=== PATIENT | female | born 1980 | race African-American/Black ===

== ENCOUNTER 2016-11-21 21:37 | Emergency (ER) | payer SELFPAY ==
--- NOTE | 2016-11-21 23:29 | ED Physician Chart ---
Chief Complaint/HPI - Patient Information Date Seen:: 11/21/16 Time Seen:: 21:59 Chief Complaint:: LEFT EAR PAIN History of Present Illness:: THIS IS A 36 YO FEMALE WHO IS CONCERNED ABOUT HER LEFT EAR PAIN. SHE DENIES FEVER, EAR DRAINAGE, RECENT SWIMING AND DENIES PREVIOUS EAR INFECTIONS. SHE DENIES ANY RELATED TRAUMA TO THE LEFT EAR. SHE DENIES HAVING A SORE THROAT AND COUGH. SHE STATES THAT HER HEARING HAS NOT BEEN AFFECTED. THE PAIN IS 5/10. Allergies:: Allergies Allergy/AdvReac Type Severity Reaction Status Date / Time No Known Allergies Allergy Verified 11/21/16 22:05 Vitals:: Vital Signs - 8 hr 11/21/16 11/21/16 21:53 22:35 Temp 97.9 F 97.8 F HR 95 90 RR 19 18 BP 126/84 121/74 O2 Sat % 99 99 Historian:: Patient Review:: Nurse's Note Reviewed Review of Systems - Review of Systems General/Constitutional: No fever, No chills, No weight loss, No weakness, No diaphoresis, No edema, No loss of appetite Skin: No skin lesions, No rash, No bruising Head: No headache, No light-headedness Eyes: No loss of vision, No pain, No diplopia ENT: Earache, No nasal drainage, No sore throat, No tinnitus Neck: No neck pain, No swelling, No thyromegaly, No stiffness, No mass noted Cardio Vascular: No chest pain, No palpitations, No PND, No orthopnea, No edema Pulmonary: No SOB, No cough, No sputum, No wheezing GI: No nausea, No vomiting, No diarrhea, No pain, No melena, No hematochezia, No constipation, No hematemesis G/U: No dysuria, No frequency, No hematuria Musculoskeletal: No bone or joint pain, No back pain, No muscle pain Endocrine: No polyuria, No polydipsia Psychiatric: No prior psych history, No depression, No anxiety, No suicidal ideation Hematopoietic: No bruising, No lymphadenopathy Allergic/Immuno: No urticaria, No angioedema Neurological: No syncope, No focal symptoms, No weakness, No paresthesia, No headache, No seizure, No dizziness, No confusion, No vertigo Past Medical History - Past Medical History Obtainable: Yes Past Medical History: No significant medical hx Family History: None Social History: Smoker, Alcohol, Illicit Drug Use (THC) Surgical History: None Psychiatricy History: None Medication: Reviewed Family Medical History - Family Member Mother History Unknown: Yes Ethnicity: Non- Father History Unknown: Yes Hx Family Hypertension: Yes Hx Family Diabetes: Yes Physical Exam - Physical Examination General/Constitutional: Awake, Well-developed, well-nourished, Alert, No distress, GCS 15, Non-toxic appearing, Ambulatory Head: Atraumatic Eyes: Lids, conjuctiva normal, PERRL, EOMI Skin: Nl inspection, No rash, No skin lesions, No ecchymosis, Well hydrated, No lymphadenopathy ENMT: Nasal exam nl, Lips, teeth, gums nl Other ENMT comments:: THE LEFT EAR CANAL IS SWOLLEN AND RED WITH A SIGNIFICANT AMOUNT OF WAX NOTED LODGED IN THE CANAL. Neck: Nontender, Full ROM w/o pain, No JVD, No nuchal rigidity, No bruit, No mass, No stridor Respiratory: Nl effort/Exclusion, Clear to Auscultation, No Wheeze/Rhonchi/Rales Cardio Vascular: RRR, No murmur, gallop, rubs, NL S1 S2 GI: No tenderness/rebounding/guarding, No organomegaly, No hernia, Normal BS's, Nondistended, No mass/bruits, No McBurney tenderness : No CVA tenderness Extremities: No tenderness or effusion, Full ROM, normal strength in all extremities, No edema, Normal digits & nails Neuro/Psych: Alert/oriented, DTR's symmetric, Normal sensory exam, Normal motor strength, Judgement/insight normal, Mood normal, Normal gait, No focal deficits Misc: normal gait, Normal back, No paraspinal tenderness Assessment - Assessment General Assessment: LEFT EAR CERUMEN IMPACTION ED Septic Shock - . Is Septic Shock (SBP<90, OR Lactate>4 mmol\L) present?: No - <6hrs of presentation: Vital Signs: Vital Signs - 8 hr 11/21/16 11/21/16 21:53 22:35 Temp 97.9 F 97.8 F HR 95 90 RR 19 18 BP 126/84 121/74 O2 Sat % 99 99 Reassessment (Disposition) - Reassessment Reassessment Condition:: Unchanged - Diagnosis Diagnosis:: LEFT CERUMEN IMPACTION - Aftercare/Follow up Instructions Aftercare/Follow-Up Instructions:: Counseled pt regarding lab results/diagnosis & need follow up, Refer to Discharge Instructions, Counseled pt & family regarding lab results/diagnosis & need follow up - Patient Disposition Discharge/Transfer:: Home Condition at Disposition:: Unchanged ED Discharge Plan - Patient Disposition Admit/Discharge/Transfer: PT DISCHARGED HOME Condition at Disposition: Unchanged Instructions: Cerumen Impaction Additional Instructions: take medications as prescribed. follow up with primary doctor
== END 2016-11-21 22:35 | disposition home or self-care (01) ==
LOC: ER 21:37
DX: H61.22 Impacted cerumen, left ear (principal); F17.200 Nicotine dependence, unspecified, uncomplicated
CPT/HCPCS: Z7502

== ENCOUNTER 2017-09-14 11:07 | Emergency (ER) | payer SELFPAY ==
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
--- NOTE | 2017-09-14 13:11 | Diagnostic Imaging Report ---
CT scan of the brain without contrast History: Headache, trauma Total DLP equals 844 CTDI equals 43.5 Axial sections were obtained from the base of the skull to the vertex. There is a normal ventricular system size. No focal parenchymal lesions are seen. No evidence of any mass effect or shift of midline structures. No extra-axial masses or abnormal fluid collections. Mild mucosal thickening noted within the sphenoid sinus region. Impression: 1. No acute intracerebral abnormalities 2. Mild mucosal thickening within the sphenoid sinus region.
--- NOTE | 2017-09-14 13:12 | Diagnostic Imaging Report ---
CT scan cervical spine HISTORY: Pain, trauma Total DLP equals 617 CTDI equals 31.8 Axial sections were obtained through the cervical spine. Additional sagittal and coronal reformatted images are provided. Alignment is normal. Disc spaces are maintained. Degenerative spur formation noted off the anterior margins of the bodies of C5 and 6. No acute abnormalities. No fractures. The prevertebral soft tissues appear normal. IMPRESSION: 1. No acute abnormalities 2. Degenerative changes C5-6
== END 2017-09-14 13:55 | disposition home or self-care (01) ==
LOC: ER 11:07
DX: S16.1XXA Strain of muscle, fascia and tendon at neck level, initial encounter (principal); R51 Headache; V89.2XXA Person injured in unspecified motor-vehicle accident, traffic, initial encounter; Y93.89 Activity, other specified; Y92.488 Other paved roadways as the place of occurrence of the external cause; Y99.8 Other external cause status
CPT/HCPCS: 70450-TC; 72125-TC; 81025-TC

== ENCOUNTER 2018-02-08 12:04 | Emergency (ER) | payer SELFPAY ==
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
== END 2018-02-08 13:32 | disposition home or self-care (01) ==
LOC: ER 12:04
DX: R10.11 Right upper quadrant pain (principal); V89.2XXA Person injured in unspecified motor-vehicle accident, traffic, initial encounter; Y93.89 Activity, other specified; Y92.410 Unspecified street and highway as the place of occurrence of the external cause; Y99.8 Other external cause status
CPT/HCPCS: Z7502

== ENCOUNTER 2018-08-14 10:49 | Emergency (ER) | payer SELFPAY ==
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
--- NOTE | 2018-08-15 09:57 | Diagnostic Imaging Report ---
CT scan of the brain without contrast History: Headache, trauma Total DLP equals 731 CTDI equals 37.2 Axial sections were obtained from the base of the skull to the vertex. There is a normal ventricular system size. No focal parenchymal lesions are seen. No evidence of any mass effect or shift of midline structures. No extra-axial masses or abnormal fluid collections. Impression: No acute intracerebral abnormalities
--- NOTE | 2018-08-15 10:00 | Diagnostic Imaging Report ---
CT scan cervical spine HISTORY: Pain, trauma Total DLP equals 568 CTDI equals 32.8 Axial sections were obtained through the cervical spine. Additional sagittal and coronal reformatted images are provided. Alignment is normal. Disc spaces are maintained. Small spur formation noted off the anterior margins of the bodies of C5 and C6. No acute abnormalities. No fractures. The prevertebral soft tissues appear normal. IMPRESSION: 1. No acute abnormalities 2. Degenerative changes C5-6
--- NOTE | 2018-08-15 10:01 | Diagnostic Imaging Report ---
CT scan lumbar spine HISTORY: Pain, trauma Total DLP equals 1537 CTDI equals 49.2 Axial sections were obtained through the lumbar spine. Additional sagittal and coronal reformatted images are provided. Alignment is normal. No significant extradural abnormalities. No acute bony abnormalities. No fractures. IMPRESSION: 1. No acute abnormalities
== END 2018-08-14 13:37 | disposition home or self-care (01) ==
LOC: ER 10:49
DX: S16.1XXA Strain of muscle, fascia and tendon at neck level, initial encounter (principal); S39.012A Strain of muscle, fascia and tendon of lower back, initial encounter; S00.93XA Contusion of unspecified part of head, initial encounter; V89.2XXA Person injured in unspecified motor-vehicle accident, traffic, initial encounter; Y93.89 Activity, other specified; Y92.410 Unspecified street and highway as the place of occurrence of the external cause; Y99.8 Other external cause status
CPT/HCPCS: 70450-TC; 72125-TC; 72131-TC

== ENCOUNTER 2018-11-29 | Emergency (ER) | payer SELFPAY ==
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
[2018-11-29] MEDS ORDERED: Morphine Sulfate 2 mg/mL 1mL Syr IM STA (00:37)
[2018-11-29] MEDS ORDERED: Morphine Sulfate 2 mg/mL 1mL Syr ONE (00:40)
[2018-11-29] MEDS ORDERED: Triple Antibiotic 0.94 gm Pkt TP STA (00:58)
[2018-11-29] MEDS ORDERED: Triple Antibiotic 0.94 gm Pkt TP ONE (01:01)
== END 2018-11-29 01:28 | disposition home or self-care (01) ==
LOC: ER
DX: S01.511A Laceration without foreign body of lip, initial encounter (principal); W18.39XA Other fall on same level, initial encounter; Y93.89 Activity, other specified; Y92.89 Other specified places as the place of occurrence of the external cause; Y99.8 Other external cause status
CPT/HCPCS: 99283; 12011; 96372; J2270; Z7502; Z7610

== ENCOUNTER 2018-12-14 12:42 | Emergency (ER) | payer SELFPAY ==
--- NOTE | 2018-12-14 14:21 | ED Physician Chart ---
ED Chief Complaint/HPI - Patient Information Date Seen:: 12/14/18 Time Seen:: 13:35 Chief Complaint:: Lip Wound History of Present Illness:: pt presents for suture removal of a 2 week sutured lip laceration; pt has no other s/s; pt's last tetanus shot: < 5 years; UTD Allergies:: Allergies Allergy/AdvReac Type Severity Reaction Status Date / Time No Known Allergies Allergy Verified 08/14/18 11:08 Vitals:: Vital Signs - 8 hr 12/14/18 13:35 Temp 97.9 F HR 115 RR 17 BP 143/90 O2 Sat % 97 Historian:: Patient Review:: Nurse's Note Reviewed, Old Chart Reviewed ED Review of Systems - Review of Systems General/Constitutional: No fever, No chills, No weight loss, No weakness, No diaphoresis, No edema, No loss of appetite Skin: No skin lesions, No rash, No bruising Head: No headache, No light-headedness Eyes: No loss of vision, No pain, No diplopia ENT: No earache, No nasal drainage, No sore throat, No tinnitus Neck: No neck pain, No swelling, No thyromegaly, No stiffness, No mass noted Cardio Vascular: No chest pain, No palpitations, No PND, No orthopnea, No edema Pulmonary: No SOB, No cough, No sputum, No wheezing GI: No nausea, No vomiting, No diarrhea, No pain, No melena, No hematochezia, No constipation, No hematemesis G/U: No dysuria, No frequency, No hematuria, No nacturia 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 vaginal discharge, No abnormal vaginal bleed, No contraction Musculoskeletal: No bone or joint pain, No back pain, No muscle pain Endocrine: No polyuria, No polydipsia Psychiatric: No prior psych history, No depression, No anxiety, No suicidal ideation, No homicidal ideation, No auditory hallucination, No visual hallucination Hematopoietic: No bruising, No lymphadenopathy Allergic/Immuno: No urticaria, No angioedema Neurological: No syncope, No focal symptoms, No weakness, No paresthesia, No headache, No seizure, No dizziness, No confusion, No vertigo ED Past Medical History - Past Medical History Obtainable: Yes Past Medical History: HTN Family History: HTN Social History: Non Smoker, No Alcohol, No Drug Use, Single Surgical History: None Psychiatricy History: None Medication: Reviewed Family Medical History - Family Member Mother History Unknown: Yes Ethnicity: Non- Hx Family Cancer: No Hx Family Coronary Artery Disease: No Hx Family Congestive Heart Failure: No Hx Family Hypertension: No Hx Family Stroke: No Hx Family Seizures: No Hx Family Dementia: No Hx Family AIDS: No Hx Family COPD: No Hx Family Hepatitis: No Hx Family Psychiatric Problems: No Father History Unknown: Yes Hx Family Cancer: No Hx Family Coronary Artery Disease: No Hx Family Congestive Heart Failure: No Hx Family Hypertension: No Hx Family Diabetes: Yes Hx Family Seizures: No Hx Family Dementia: No Hx Family COPD: No Hx Family Tuberculosis: No ED Physical Exam - Physical Examination General/Constitutional: Awake, Well-developed, well-nourished, Alert, No distress, GCS 15, Non-toxic appearing, Ambulatory Head: Atraumatic Eyes: Lids, conjuctiva normal, PERRL, EOMI Skin: Nl inspection, No rash, No skin lesions, No ecchymosis, Well hydrated, No lymphadenopathy Other Skin comments:: Sutured Lip Wound is healing well; no s/s of infection; good NV functions ENMT: External ears, nose nl, TM canals nl, Nasal exam nl, Lips, teeth, gums nl , Oropharynx nl, Tonsils nl Neck: Nontender, Full ROM w/o pain, No JVD, No nuchal rigidity, No bruit, No mass, No stridor Other Neck comments:: supple; no meningeal signs; no cervical tenderness; no bruits Respiratory: Nl effort/Exclusion, Clear to Auscultation, No Wheeze/Rhonchi/Rales Cardio Vascular: RRR, No murmur, gallop, rubs, NL S1 S2, Carotid/Femoral/Distal pulses equal bilaterally GI: No tenderness/rebounding/guarding, No organomegaly, No hernia, Normal BS's, Nondistended, No mass/bruits, No McBurney tenderness, Rectum exam nl Other GI comments:: no pulsatile masses : No CVA tenderness Extremities: No tenderness or effusion, Full ROM, normal strength in all extremities, No edema, Normal digits & nails Neuro/Psych: Alert/oriented, DTR's symmetric, Normal sensory exam, Normal motor strength, Judgement/insight normal, Mood normal, Normal gait, No focal deficits Misc: Normal back, No paraspinal tenderness ED Septic Shock - . Is Septic Shock (SBP<90, OR Lactate>4 mmol\L) present?: No - <6hrs of presentation: Vital Signs: Vital Signs - 8 hr 12/14/18 13:35 Temp 97.9 F HR 115 RR 17 BP 143/90 O2 Sat % 97 ED Reassessment (Disposition) - Reassessment Reassessment:: pt is asymptomatic upon discharge/elopement Reassessment Condition:: Improved - Diagnosis Diagnosis:: Hypertension; Sutured Healing Lip Wound - Aftercare/Follow up Instructions Aftercare/Follow-Up Instructions:: Counseled pt regarding lab results/diagnosis & need follow up, Refer to Discharge Instructions, Counseled pt & family regarding lab results/diagnosis & need follow up - Patient Disposition Discharge/Transfer:: [place]/AWOL Condition at Disposition:: Stable, Improved (Have BP re-checked in one day by PMD; Sutures to be removed today; RTER prn if existing s/s reoccur and/or get worse and/or any other new s/s occur; ACIs given for all above Dx; Refer to ENT Specialist/Facial Plastic Surgeon/Pediatric Physical Therapy Assistant CATIE; F/U with PMD Today or prn; RTER prn if concerned)
== END 2018-12-14 13:40 | disposition left against medical advice (07) ==
LOC: ER 12:42
DX: S01.511D Laceration without foreign body of lip, subsequent encounter (principal); I10 Essential (primary) hypertension; X58.XXXD Exposure to other specified factors, subsequent encounter
CPT/HCPCS: Z7502

== ENCOUNTER 2018-12-15 16:07 | Emergency (ER) | payer SELFPAY ==
--- NOTE | 2018-12-15 19:07 | ED Physician Chart ---
ED Chief Complaint/HPI - Patient Information Date Seen:: 12/15/18 Time Seen:: 16:20 Chief Complaint:: Lip Wound Check History of Present Illness:: pt is s/p sutured lip laceration on 11/29/18; pt presents for a wound check and removal of 3 sutures; pt has no complaints; pt denies LOC, ALOC, AMS, H/As, neck pain, C/P, SOB, Abd. Pain, or urinary s/s; pt's last tetanus shot: < 5 years; UTD Allergies:: Allergies Allergy/AdvReac Type Severity Reaction Status Date / Time No Known Allergies Allergy Verified 08/14/18 11:08 Vitals:: Vital Signs - 8 hr 12/15/18 16:21 Temp 97.1 F HR 129 RR 16 BP 120/82 O2 Sat % 94 Historian:: Patient Review:: Nurse's Note Reviewed, Old Chart Reviewed ED Review of Systems - Review of Systems General/Constitutional: No fever, No chills, No weight loss, No weakness, No diaphoresis, No edema, No loss of appetite Skin: No skin lesions, No rash, No bruising Head: No headache, No light-headedness Eyes: No loss of vision, No pain, No diplopia ENT: No earache, No nasal drainage, No sore throat, No tinnitus Neck: No neck pain, No swelling, No thyromegaly, No stiffness, No mass noted Cardio Vascular: No chest pain, No palpitations, No PND, No orthopnea, No edema Pulmonary: No SOB, No cough, No sputum, No wheezing GI: No nausea, No vomiting, No diarrhea, No pain, No melena, No hematochezia, No constipation, No hematemesis G/U: No dysuria, No frequency, No hematuria, No nacturia Slurry Worker: No vaginal discharge, No abnormal vaginal bleed, No contraction Musculoskeletal: No bone or joint pain, No back pain, No muscle pain Endocrine: No polyuria, No polydipsia Psychiatric: No prior psych history, No depression, No anxiety, No suicidal ideation, No homicidal ideation, No auditory hallucination, No visual hallucination Hematopoietic: No bruising, No lymphadenopathy Allergic/Immuno: No urticaria, No angioedema Neurological: No syncope, No focal symptoms, No weakness, No paresthesia, No headache, No seizure, No dizziness, No confusion, No vertigo ED Past Medical History - Past Medical History Obtainable: Yes Past Medical History: No significant medical hx Family History: HTN Social History: Non Smoker, No Alcohol, No Drug Use, Single Surgical History: None Psychiatricy History: None Medication: Reviewed Family Medical History - Family Member Mother History Unknown: Yes Ethnicity: Non- Hx Family Cancer: No Hx Family Coronary Artery Disease: No Hx Family Congestive Heart Failure: No Hx Family Hypertension: No Hx Family Stroke: No Hx Family Seizures: No Hx Family Dementia: No Hx Family AIDS: No Hx Family COPD: No Hx Family Hepatitis: No Hx Family Psychiatric Problems: No Father History Unknown: Yes Hx Family Cancer: No Hx Family Coronary Artery Disease: No Hx Family Congestive Heart Failure: No Hx Family Hypertension: No Hx Family Diabetes: Yes Hx Family Seizures: No Hx Family Dementia: No Hx Family COPD: No Hx Family Tuberculosis: No ED Physical Exam - Physical Examination General/Constitutional: Awake, Well-developed, well-nourished, Alert, No distress, GCS 15, Non-toxic appearing, Ambulatory Head: Atraumatic Eyes: Lids, conjuctiva normal, PERRL, EOMI Other Eyes comments:: PERRLA; Fundi: benign; EOMs: WNL Skin: Nl inspection, No rash, No skin lesions, No ecchymosis, Well hydrated, No lymphadenopathy Other Skin comments:: Lower Lip Wound is healing well; no s/s of infection; good NV functions ENMT: External ears, nose nl, TM canals nl, Nasal exam nl, Lips, teeth, gums nl , Oropharynx nl, Tonsils nl Other ENMT comments:: TMJs: WNL; as above; Lower Lip Wound is healing well; no s/s of infection Neck: Nontender, Full ROM w/o pain, No JVD, No nuchal rigidity, No bruit, No mass, No stridor Other Neck comments:: supple; no meningeal signs; no cervical tenderness; no bruits Respiratory: Nl effort/Exclusion, Clear to Auscultation, No Wheeze/Rhonchi/Rales Cardio Vascular: RRR, No murmur, gallop, rubs, NL S1 S2, Carotid/Femoral/Distal pulses equal bilaterally GI: No tenderness/rebounding/guarding, No organomegaly, No hernia, Normal BS's, Nondistended, No mass/bruits, No McBurney tenderness, Rectum exam nl Other GI comments:: no pulsatile masses : No CVA tenderness Extremities: No tenderness or effusion, Full ROM, normal strength in all extremities, No edema, Normal digits & nails Neuro/Psych: Alert/oriented, DTR's symmetric, Normal sensory exam, Normal motor strength, Judgement/insight normal, Mood normal, Normal gait, No focal deficits Other Neuro/Psych comments:: no focal signs Misc: Normal back, No paraspinal tenderness ED Assessment - Procedures Informed Consent: Procedure/risk/benefits explained by MD: Yes Laceration Type:: Simple Inspection: No dirt/debris, Bases & margins visual, NO FB Comments:: All 3 sutures were removed from the lower inner lip wound; no complications Post Procedure/Splint Exam: No Active Bleeding, Full Range of Motion, Neuro/ Vascular Exam Comments:: good NV functions ED Septic Shock - . Is Septic Shock (SBP<90, OR Lactate>4 mmol\L) present?: No - <6hrs of presentation: Vital Signs: Vital Signs - 8 hr 12/15/18 16:21 Temp 97.1 F HR 129 RR 16 BP 120/82 O2 Sat % 94 ED Reassessment (Disposition) - Reassessment Reassessment:: Final BP: 120/80; Pulse: 90; pt tolerated po fluids well in ER; pt is asymptomatic upon discharge Reassessment Condition:: Improved - Diagnosis Diagnosis:: Lower Inner Lip Wound; Sutures Removal; Healing Lip Wound; Head/Facial Injury - Aftercare/Follow up Instructions Aftercare/Follow-Up Instructions:: Counseled pt regarding lab results/diagnosis & need follow up, Refer to Discharge Instructions, Counseled pt & family regarding lab results/diagnosis & need follow up - Patient Disposition Discharge/Transfer:: Home Condition at Disposition:: Stable, Improved (RTER prn if existing s/s reoccur and/or get worse and/or any other new s/s occur; ACIs given for all above Dx; Refer to ENT Specialist/Facial-Plastic Surgeon/Core Shaper Top [facility]IE; F/U with PMD in one day or prn; RTER prn if concerned)
== END 2018-12-15 17:20 | disposition home or self-care (01) ==
LOC: ER 16:07
DX: S01.511D Laceration without foreign body of lip, subsequent encounter (principal); X58.XXXD Exposure to other specified factors, subsequent encounter
CPT/HCPCS: Z7502; Z7610